=== PATIENT | female | born 1965 ===

== ENCOUNTER 2020-08-04 07:32 | Day surgery (SDC) | payer OTHER ==
[~2020-08-04 07:32] MED LIST: CANDESARTAN CILE8 MG PO; HYDRODIURIL12.5 MG PO; MAGNESIUM500 MG PO; MAXIMUM D3325 MCG PO; MELATONIN1 MG PO; MONTELUKAST SOD10 MG PO
== END 2020-08-04 18:30 | disposition home or self-care (01) ==
LOC: CIR.AMB 07:32
PROVIDERS: ATTEND Orthopaedic Surgery Sports Medicine
DX: M75.122 Complete rotator cuff tear or rupture of left shoulder, not specified as traumatic (principal); M75.22 Bicipital tendinitis, left shoulder; M24.012 Loose body in left shoulder; M75.42 Impingement syndrome of left shoulder; Z20.822 Contact with and (suspected) exposure to COVID-19

== ENCOUNTER 2023-02-13 10:58 | Outpatient (CLI) | payer OTHER | END 2023-02-13 11:20 | disposition home or self-care (01) | LOC: MAMO-SONO 10:58 | PROVIDERS: ATTEND Specialist | DX: N60.11 Diffuse cystic mastopathy of right breast (principal); N60.12 Diffuse cystic mastopathy of left breast; Z12.31 Encounter for screening mammogram for malignant neoplasm of breast ==

== ENCOUNTER 2023-03-06 14:29 | Outpatient (CLI) | payer OTHER | END 2023-03-06 14:43 | disposition home or self-care (01) | LOC: MRI 14:29 | PROVIDERS: ATTEND Internal Medicine | DX: S83.242A Other tear of medial meniscus, current injury, left knee, initial encounter (principal); M15.0 Primary generalized (osteo)arthritis | CPT/HCPCS: 73718 ==

== ENCOUNTER 2023-12-30 12:22 | Outpatient (CLI) | payer OTHER ==
[2023-12-30 13:15] LABS: CREATININE SERUM 0.85 mg/dL (0.55-1.02)
== END 2023-12-30 12:23 | disposition home or self-care (01) ==
LOC: LAB 12:22
PROVIDERS: ATTEND Radiology Diagnostic Radiology
DX: K80.10 Calculus of gallbladder with chronic cholecystitis without obstruction (principal)

== ENCOUNTER 2023-12-31 07:52 | Outpatient (CLI) | payer OTHER | END 2023-12-31 08:01 | disposition home or self-care (01) | LOC: TOM 07:52 | PROVIDERS: ATTEND Internal Medicine | DX: K80.10 Calculus of gallbladder with chronic cholecystitis without obstruction (principal) ==

== ENCOUNTER 2024-01-28 06:35 | Day surgery (SDC) | payer OTHER ==
[2024-01-22 09:23] LABS: PH,URINE 5.5 (5.0-8.0); URINE BILIRRUBIN Negative (NEGATIVE); URINE BLOOD Negative; URINE COLOR Yellow; URINE GLUCOSE Negative (NEGATIVE); URINE KETONE Negative (NEGATIVE); URINE LEUKOCYTE Small; URINE NITRATE Positive; URINE PROTEIN Negative (NEGATIVE); URINE UROBILINOGEN 0.2 E.U./dl
[2024-01-22 09:25] LABS: URINE EPITHELIAL CELLS 17.3 uL (0.0-38.8); URINE WBC 82.9 uL (0.0-23.2)
[2024-01-22 09:27] LABS: HEMATOCRIT 38.6 % (36.0-45.00); HEMOGLOBIN 12.9 g/dL (12.0-15.00); MEAN CELL VOLUME 83.2 fL (80.00-100.00); MEAN CORPUSCULAR HEMOGLOBIN 27.8 pg (27.00-32.0); MEAN CORPUSCULAR HGB CONC 33.4 g/dl (32.0-36.0); PLATELET COUNT 268 K/uL (150-450); RED BLOOD COUNT 4.64 M/uL (4.00-6.00); RED CELL DISTRIBUTION WIDTH 14.6 % (11.5-14.5)
[2024-01-22 09:32] LABS: URINE APPEARANCE CLEAR; URINE BACTERIA > 9821.5 uL (0.0-1933); URINE RBC 1.3 uL (0.0-20.8)
[2024-01-22 09:55] LABS: INR 1.02; PARTIAL THROMBOPLASTIN TIME 29.8 SECONDS (22.0-34.0); PROTHROMBIN TIME 10.7 SECONDS (9.0-11.5)
[2024-01-22 10:22] LABS: ALBUMIN 3.8 gm/dL (3.4-5.0); BILIRUBIN TOTAL 0.55 mg/dL (0.3-1.2); CALCIUM 9.4 mg/dL (8.5-10.1); CREATININE SERUM 0.73 mg/dL (0.55-1.02); GFR 82.47; GLOBULINA 3.8 G/DL (2.4-3.5); POTASSIUM 4.02 mEq/L (3.5-5.1); TOTAL PROTEIN 7.6 gm/dL (6.4-8.2)
[~2024-01-28 06:35] MED LIST changes: +COZAAR25 MG PO; +COZAAR50 MG PO; +DETROL1 MG PO; +EZALLOR SPRINKLE5 MG PO; +NASAL MIST126 ML; +VITAMIN D310 MCG/1 M PO
[2024-01-28] MEDS ORDERED: CEFAZOLIN SODIUM 1,000 MG VIAL IV ONE (14:00)
[2024-01-28] MEDS ORDERED: SUGAMMADEX SODIUM 200 MG/2 ML VIAL IV ONE (15:00)
== END 2024-01-28 16:55 | disposition home or self-care (01) ==
LOC: CIR.AMB 06:35
PROVIDERS: ATTEND Surgery
DX: K80.10 Calculus of gallbladder with chronic cholecystitis without obstruction (principal); I10 Essential (primary) hypertension; R32 Unspecified urinary incontinence; E78.00 Pure hypercholesterolemia, unspecified

== ENCOUNTER 2024-09-20 13:52 | Outpatient (CLI) | payer OTHER | END 2024-09-20 14:02 | disposition home or self-care (01) | LOC: RAD 13:52 | PROVIDERS: ATTEND Physical Medicine & Rehabilitation | DX: M25.532 Pain in left wrist (principal); M25.562 Pain in left knee; M25.571 Pain in right ankle and joints of right foot; M76.61 Achilles tendinitis, right leg ==

== ENCOUNTER 2024-09-23 06:50 | Outpatient (CLI) | payer OTHER | END 2024-09-23 07:00 | disposition home or self-care (01) | LOC: MRI 06:50 | PROVIDERS: ATTEND Internal Medicine | DX: E04.1 Nontoxic single thyroid nodule (principal); M15.0 Primary generalized (osteo)arthritis | CPT/HCPCS: 73721 ==

== ENCOUNTER → 2024-09-23 08:33 | Outpatient (CLI) | payer OTHER | END | disposition home or self-care (01) | LOC: LAB 08:33 | PROVIDERS: ATTEND Internal Medicine | DX: M15.0 Primary generalized (osteo)arthritis (principal) ==

== ENCOUNTER 2025-05-30 12:53 | Outpatient (CLI) | payer OTHER | END 2025-05-30 12:58 | disposition home or self-care (01) | LOC: MAMO-SONO 12:53 | PROVIDERS: ATTEND Student in an Organized Health Care Education/Training Program | DX: N60.11 Diffuse cystic mastopathy of right breast (principal); N60.12 Diffuse cystic mastopathy of left breast; Z12.31 Encounter for screening mammogram for malignant neoplasm of breast ==